=== PATIENT | male | born 1995 | race Caucasian/White ===

== ENCOUNTER 2016-12-25 14:02 | Inpatient (IN) | payer OTHER ==
[2016-12-25 14:52] LABS: Urine Bacteria Absent (Absent); Urine Bilirubin Negative (Negative); Urine Glucose Negative (Negative); Urine Nitrite Negative (Negative)
[2016-12-25 15:04] LABS: Benzodiazepine Urine Screen Presumptive Positive (None Detect)
[2016-12-25 15:26] LABS: ALT 9 U/L (7-52); AST 14 U/L (13-39); Albumin 4.6 g/dL (3.2-5.2); Alkaline Phosphatase 57 U/L (34-104); Anion Gap 5 mmol/L (2-11); BUN/Creatinine Ratio 9.7 (8-20); Blood Urea Nitrogen 9 mg/dL (6-24); CO2 Carbon Dioxide 26 mmol/L (22-32); Calcium 9.5 mg/dL (8.6-10.3); Chloride 104 mmol/L (101-111); EGFR African American 133.2 (>60); EGFR Non-African American 103.6 (>60); Globulin 2.9 g/dL (2-4); Glucose 79 mg/dL (70-100); Potassium 4.7 mmol/L (3.5-5.0); Sodium 135 mmol/L (133-145); Total Protein 7.5 g/dL (6.4-8.9)
[2016-12-25 15:51] LABS: Acetaminophen < 15 mcg/mL; Alcohol < 10 mg/dL (<10); Salicylate < 2.50 mg/dL (<30)
[2016-12-25 15:58] LABS: Hematocrit 48 % (42-52); Hemoglobin 16.4 g/dl (14.0-18.0); Mean Corpuscular HGB Conc 34 g/dl (31-36); Mean Corpuscular Hemoglobin 32 pg (27-31); Mean Corpuscular Volume 95 fL (80-94); Mean Platelet Volume 8 um3 (7.4-10.4); Red Blood Count 5.07 10^6/ul (4.0-5.4); Red Cell Distribution Width 13 % (10.5-15); White Blood Count 7.9 10^3/ul (3.5-10.8)
[2016-12-25 16:00] LABS: TSH (Thyroid Stimulating Horm) 2.14 mcIU/mL (0.34-5.60)
--- NOTE | 2016-12-25 18:45 | ED ---
Geoff Cardenas Auryana, scribed for Cortez Parson MD on 12/25/16 at 1456 . Psychiatric Complaint - HPI Summary HPI Summary: 21 year old male presents as a 9.41. Per patient, he saw a new doctor and explained to him that he had SI years ago while in high school and then the police brought him here. He reports that he is very angry with the current situation but does report that he is depressed, more often at night reports over the last few weeks. He also has increased sleep but reports good quality. He reports good appetite. He denies any SI or plan, hallucinations, delusion, paranoia, or any self-harm. He is not on any current medications for psychiatric issues. PMHx is significant for depression (previous Rx for low dose SSRI). SHx is significant for alcohol use (3x week - denies any use last night or today), and marijuana use. He denies any other recreational drug use. - History Of Current Complaint Chief Complaint: EDMentalHealth Time Seen by Provider: 12/25/16 14:23 Accompanied By: police Hx Obtained From: Patient Onset/Duration: Gradual Onset, Lasting Weeks, Still Present Timing: Weeks - few Severity Initially: Moderate Severity Currently: Moderate Character: Depressed Associated Signs And Symptoms: Positive: Sleep Disturbance - increased sleep. Negative: Hallucinating, Paranoid Behavior, Appetite Change Related History: Positive For: Prior Psychiatric Issues - hx of depression Has Suicidal: Reports: Thoughts - per doctors report - Allergies/Home Medications Allergies/Adverse Reactions: Allergies Allergy/AdvReac Type Severity Reaction Status Date / Time No Known Allergies Allergy Verified 07/12/13 06:38 PMH/Surg Hx/FS Hx/Imm Hx Endocrine/Hematology History: Denies: Hx Diabetes Cardiovascular History: Denies: Hx Hypertension, Hx Pacemaker/ICD History: Denies: Hx Dialysis, Hx Renal Disease Sensory History: Denies: Hx Hearing Aid Neurological History: Reports: Hx Headaches Psychiatric History: Reports: Hx Depression Denies: Hx Eating Disorder, Hx Panic Disorder, Hx of Violent Episodes Against Others Infectious Disease History: No Infectious Disease History: Denies: Traveled Outside the [place] in Last 30 Days - Family History Known Family History: Positive: Other - no family history of psychiatric issues or illnesses - Social History Lives: With Family Alcohol Use: None Substance Use Type: Reports: Marijuana Substance Use Comment - Amount & Last Used: 2 x total not recently Review of Systems Constitutional: Negative Eyes: Negative ENT: Negative Cardiovascular: Negative Respiratory: Negative Gastrointestinal: Negative Genitourinary: Negative Musculoskeletal: Negative Skin: Negative Neurological: Negative Positive: Depressed, Other - no SI All Other Systems Reviewed And Are Negative: Yes Physical Exam - Summary Physical Exam Summary: The patient is well-nourished in no acute distress and in no acute pain. The skin is warm and dry and skin color reflects adequate perfusion. No evidence of trauma. HEENT: The head is normocephalic and atraumatic. The pupils are equal and reactive. The conjunctivae are clear and without drainage. Nares are patent and without drainage. Mouth reveals moist mucous membranes and the throat is without erythema and exudate. The external ears are intact. Neck is supple with full range of motion and non-tender. There are no carotid bruits. There is no neck vein distension. Respiratory: Chest is non-tender. Lungs are clear to auscultation and breath sounds are symmetrical and equal. Cardiovascular: Hear is regular rate and rhythm. There is no murmur or rub auscultated. There is no peripheral edema and pulses are symmetrical and equal. Abdomen: The abdomen is soft and non-tender. There are normal bowel sounds heard in all four quadrants and there is no organomegaly palpated. Musculoskeletal: There is no back pain noted. Extremities are non-tender with full range of motion. There is good capillary refill. There is no peripheral edema or calf tenderness elicited. Neurological: Patient is alert and oriented to person, place and time. The patient has symmetrical motor strength in all four extremities. Cranial nerves are grossly intact. Deep tendon reflexes are symmetrical and equal in all four extremities. Psychiatric: The patient is alert, angry, and depressed. Triage Information Reviewed: Yes Vital Signs On Initial Exam: Initial Vitals Temp Pulse Resp BP Pulse Ox 98.0 F 55 16 108/83 100 12/25/16 14:05 12/25/16 14:05 12/25/16 14:05 12/25/16 14:05 12/25/16 14:05 Vital Signs Reviewed: Yes Diagnostics - Vital Signs Vital Signs Temp Pulse Resp BP Pulse Ox 12/25/16 14:05 98.0 F 55 16 108/83 100 - Laboratory Lab Results: Lab Results 12/25/16 12/25/16 12/25/16 Range/Units 14:28 14:28 14:58 WBC (3.5-10.8) 10^3/ul RBC (4.0-5.4) 10^6/ul Hgb (14.0-18.0) g/dl Hct (42-52) % MCV (80-94) fL MCH (27-31) pg MCHC (31-36) g/dl RDW (10.5-15) % Plt Count (150-450) 10^3/ul MPV (7.4-10.4) um3 Neut % (Auto) (38-83) % Lymph % (Auto) (25-47) % [place] % (Auto) (1-9) % Eos % (Auto) (0-6) % Baso % (Auto) (0-2) % Absolute Neuts (auto) (1.5-7.7) 10^3/ul Absolute Lymphs (auto) (1.0-4.8) 10^3/ul Absolute Monos (auto) (0-0.8) 10^3/ul Absolute Eos (auto) (0-0.6) 10^3/ul Absolute Basos (auto) (0-0.2) 10^3/ul Absolute Nucleated RBC 10^3/ul Nucleated RBC % Sodium 135 (133-145) mmol/L Potassium 4.7 (3.5-5.0) mmol/L Chloride 104 (101-111) mmol/L Carbon Dioxide 26 (22-32) mmol/L Anion Gap 5 (2-11) mmol/L BUN 9 (6-24) mg/dL Creatinine 0.93 (0.67-1.17) mg/dL Est GFR ( Amer) 133.2 (>60) Est GFR (Non-Af Amer) 103.6 (>60) BUN/Creatinine Ratio 9.7 (8-20) Glucose 79 (70-100) mg/dL Calcium 9.5 (8.6-10.3) mg/dL Total Bilirubin 0.40 (0.2-1.0) mg/dL AST 14 (13-39) U/L ALT 9 (7-52) U/L Alkaline Phosphatase 57 (34-104) U/L Total Protein 7.5 (6.4-8.9) g/dL Albumin 4.6 (3.2-5.2) g/dL Globulin 2.9 (2-4) g/dL Albumin/Globulin Ratio 1.6 (1-3) TSH 2.14 (0.34-5.60) mcIU/mL Urine Color Yellow Urine Appearance Clear Urine pH 6.0 (5-9) Ur Specific [place] 1.014 (1.010-1.030) Urine Protein Negative (Negative) Urine Ketones Negative (Negative) Urine Blood Negative (Negative) Urine Nitrate Negative (Negative) Urine Bilirubin Negative (Negative) Urine Urobilinogen Negative (Negative) Ur Leukocyte Esterase 3+ H (Negative) Urine WBC (Auto) 2+(11-20/hpf) H (Absent) Urine RBC (Auto) Absent (Absent) Ur Squamous Epith Cells Present H (Absent) Urine Bacteria Absent (Absent) Urine Glucose Negative (Negative) Salicylates < 2.50 (<30) mg/dL Urine Opiates Screen None detected (None Detect) Acetaminophen < 15 mcg/mL Ur Barbiturates Screen None detected (None Detect) Ur Phencyclidine Scrn None detected (None Detect) Ur Amphetamines Screen None detected (None Detect) U Benzodiazepines Scrn Presumptive positive H (None Detect) Urine Cocaine Screen None detected (None Detect) U Cannabinoids Screen Presumptive positive H (None Detect) Serum Alcohol < 10 (<10) mg/dL 12/25/16 Range/Units 15:17 WBC 7.9 (3.5-10.8) 10^3/ul RBC 5.07 (4.0-5.4) 10^6/ul Hgb 16.4 (14.0-18.0) g/dl Hct 48 (42-52) % MCV 95 H (80-94) fL MCH 32 H (27-31) pg MCHC 34 (31-36) g/dl RDW 13 (10.5-15) % Plt Count 221 (150-450) 10^3/ul MPV 8 (7.4-10.4) um3 Neut % (Auto) 46.1 (38-83) % Lymph % (Auto) 43.4 (25-47) % [place] % (Auto) 7.6 (1-9) % Eos % (Auto) 1.9 (0-6) % Baso % (Auto) 1.0 (0-2) % Absolute Neuts (auto) 3.6 (1.5-7.7) 10^3/ul Absolute Lymphs (auto) 3.4 (1.0-4.8) 10^3/ul Absolute Monos (auto) 0.6 (0-0.8) 10^3/ul Absolute Eos (auto) 0.2 (0-0.6) 10^3/ul Absolute Basos (auto) 0.1 (0-0.2) 10^3/ul Absolute Nucleated RBC 0 10^3/ul Nucleated RBC % 0 Sodium (133-145) mmol/L Potassium (3.5-5.0) mmol/L Chloride (101-111) mmol/L Carbon Dioxide (22-32) mmol/L Anion Gap (2-11) mmol/L BUN (6-24) mg/dL Creatinine (0.67-1.17) mg/dL Est GFR ( Amer) (>60) Est GFR (Non-Af Amer) (>60) BUN/Creatinine Ratio (8-20) Glucose (70-100) mg/dL Calcium (8.6-10.3) mg/dL Total Bilirubin (0.2-1.0) mg/dL AST (13-39) U/L ALT (7-52) U/L Alkaline Phosphatase (34-104) U/L Total Protein (6.4-8.9) g/dL Albumin (3.2-5.2) g/dL Globulin (2-4) g/dL Albumin/Globulin Ratio (1-3) TSH (0.34-5.60) mcIU/mL Urine Color Urine Appearance Urine pH (5-9) Ur Specific [place] (1.010-1.030) Urine Protein (Negative) Urine Ketones (Negative) Urine Blood (Negative) Urine Nitrate (Negative) Urine Bilirubin (Negative) Urine Urobilinogen (Negative) Ur Leukocyte Esterase (Negative) Urine WBC (Auto) (Absent) Urine RBC (Auto) (Absent) Ur Squamous Epith Cells (Absent) Urine Bacteria (Absent) Urine Glucose (Negative) Salicylates (<30) mg/dL Urine Opiates Screen (None Detect) Acetaminophen mcg/mL Ur Barbiturates Screen (None Detect) Ur Phencyclidine Scrn (None Detect) Ur Amphetamines Screen (None Detect) U Benzodiazepines Scrn (None Detect) Urine Cocaine Screen (None Detect) U Cannabinoids Screen (None Detect) Serum Alcohol (<10) mg/dL Result Diagrams: 12/25/16 15:17 12/25/16 14:58 Lab Statement: Any lab studies that have been ordered have been reviewed, and results considered in the medical decision making process. Course/Dx - Course Assessment/Plan: 21 year old male presents as a 9.41. Per patient, he saw a new doctor and explained to him that he had SI years ago while in high school and then the police brought him here. He reports that he is very angry with the current situation but does report that he is depressed, more often at night reports over the last few weeks. He also has increased sleep but reports good quality. He reports good appetite. He denies any SI or plan, hallucinations, delusion, paranoia, or any self-harm. He is not on any current medications for psychiatric issues. PMHx is significant for depression (previous Rx for low dose SSRI). SHx is significant for alcohol use (3x week - denies any use last night or today), and marijuana use. He denies any other recreational drug use. Medically clear at 14:53. Blood work is WNL. UA is contaminated with leukocyte esterase 3+, and WBC 2+. Negative salicylates, acetaminophen, and alcohol. Toxicology screen is (+) for benzodiazepines and cannabinoids. After MHE, Dr. rOtega recommends voluntary admission to [facility] [place] behavioral unit and if patient does not accept voluntary admission, involuntary admission is recommended. Patient accepted voluntary admission to [facility] [place] behavioral unit- 9.13. Dx: depression, anxiety - Differential Dx/Clinical Impression Differential Diagnosis/HQI/PQRI: Positive: Anxiety, Depression, Suicidal Ideation Provider Diagnosis: Depression, Anxiety Discharge - Discharge Plan Condition: Stable Disposition: PSYCHIATRIC FACILITY-[facility] [place] The documentation as recorded by the Geoff pike Auryana accurately reflects the service I personally performed and the decisions made by me, Cortez Parson MD.
[2016-12-25] MEDS ORDERED: Al Hydrox/Mg Hydrox/Simet LIQ* 30 ML UDC PO PRN (20:06)
[2016-12-25] MEDS ORDERED: Acetaminophen TAB* 325 MG PO PRN (20:06)
[2016-12-25] MEDS ORDERED: diPHENhydraMINE PO* 50 MG PO PRN (20:08)
[2016-12-25] MEDS ORDERED: LORazepam TAB(*) 1 MG PO PRN (20:08)
[2016-12-25] MEDS ORDERED: Mouth Piece, Nicotine* 1 EACH CARTRIDGE INH PRN (21:41)
[2016-12-25] MEDS: Nicotine Inhaler* 10 MG AMP INH PRN (21:52)
[2016-12-26] MEDS: Nicotine Inhaler* 10 MG AMP INH PRN ×4 (08:28→19:27)
[2016-12-26] MEDS: Vitamin THERAPEUTIC TAB PO SCH (08:28)
[2016-12-26] MEDS ORDERED: FLUoxetine CAP* 10 MG PO SCH (09:00)
[2016-12-26] MEDS: Venlafaxine EXT RELEASE CAP* 37.5 MG PO SCH (16:05)
[2016-12-26] MEDS: LORazepam TAB(*) 0.5 MG PO PRN ×2 (16:05→22:10)
--- NOTE | 2016-12-27 03:57 | HP ---
HISTORY AND PHYSICAL: DATE OF ADMISSION: 12/25/16 IDENTIFYING DATA: Brandon is a 21-year-old single male, a [employer] student, who lives with his father. He was brought in from his primary care doctor's office on 9.45 status and he was admitted on emergency status because of reported suicidal ideation. CHIEF COMPLAINT: "I told the doctor, I was depressed and felt worked up, he misunderstood and called the police!" HISTORY OF PRESENT ILLNESS: Brandon is known to the adolescent inpatient psychiatric service from previous admission in 2013. He relates having past diagnosis of depression, social anxiety, but not having been on any medication or in therapy for over 2 years. The endorses for the past 2 weeks, having felt increasingly sad, especially in the early hours of morning when he is unable to fall asleep. He feels tired, has little energy and sleeps long periods of time during the day and he feels worthless at times. He denies previous jesús suicide attempt or history of self-injury. He attended [employer] about 2 weeks ago, and he used Xanax, LSD and Ecstasy. After [employer] he told his girlfriend of 2 months that he has kissed a girl at the festival and the girlfriend confessed to him that she had cheated on him with someone he knew. He broke up the relationship on Tuesday12/18/16 says he has felt more distressed ever since. Yesterday, he went to his first appointment at [facility] and spoke to Dr. Mckinley Knight about his worsening depressive symptoms and although he denied that was ever the case, notes from the mental health evaluation indicates that he made suicidal statements and could not contract for safety and refused to drive himself to the emergency room of this hospital for mental health evaluation and was as a result transported by police. 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 REVIEW OF PSYCHIATRIC SYMPTOMS: He gives a 2-week history of worsening depressive symptoms, but denies suicidal ideation, intent or plan or previous jesús attempt. He endorses anxiety in social situations, excessive worrying, "what ifs,"and occasional panic attacks. He denies obsessive thoughts or compulsive rituals. He denies any history of trauma or abuse of PTSD symptoms. He denies previous diagnosis of ADHD or learning disorder. He denies symptoms of eating disorder. PAST PSYCHIATRIC HISTORY: History of one previous inpatient psychiatric admission in the adolescent unit, in 2014 because of suicidal ideation. He has received outpatient care in the past at [facility] and with psychologist, Dr. Lukas Gabriel. Has had past trials of fluoxetine and sertraline , which he admits he was never fully adherent to. He reports not having been in psychiatric care for over the past 2 years. SUICIDE/HOMICIDE HISTORY: The patient was transported to the hospital after admitting to having suicidal ideation to a new primary care physician. He now denies having suicidal, any history of previous suicide attempt or of self- injury. PAST MEDICAL HISTORY: He denies any active medical problems, any history of head trauma, loss of consciousness, seizures or surgeries. The patient was in the [place] [facility] [place] brought in to the hospital. ALLERGIES: No known drug allergies. FAMILY HISTORY: The patient reports family history of depression and anxiety in his biological mother and alcohol dependence in maternal grandfather. SUBSTANCE ABUSE TREATMENT HISTORY: He admits to smoking marijuana about 3 to 5 times a week and he started using at age 17. Urine drug screen is positive. He drinks alcohol about twice a week. He denies legal or medical consequences. He used Xanax, LSD, and Peggy during the [employer] about 2 weeks ago. Urine drug screen is still positive for benzodiazepines suggesting more recent use. He smokes about a half a pack of cigarettes per day. He denies the use of other illicit drugs or misuse of prescribed medications. PERSONAL AND SOCIAL HISTORY: He is the youngest of 3 children from parents, who when he was about 14 years old. He lived between the houses of both his [facility], then with his mother exclusively from age 17 to age 20 and he has been living with his father ever since. The patient has recently completed his 3rd semester at [employer]. He did poorly academically in the last 2 semesters and as a result he may have lost financial support and possibly will no longer be able to afford college. He was working towards degree in Business. He identifies as being heterosexual. Breakup of his relationship of 2 months has been a stressor. He described a periodically strained relationship with his mother. REVIEW OF MEDICAL SYMPTOMS: Negative. PHYSICAL EXAMINATION GENERAL: He is a well-appearing 21-year-old white male, who does not appear to be in any acute physical distress. He is alert and oriented x3. ADMISSION VITAL SIGNS: Blood pressure 121/60, pulse is 56, respirations 16, temperature 98.6. HEENT: Head: Atraumatic, normocephalic, symmetrical. Eyes: PERRLA. Tympanic membranes intact. Sclerae anicteric. Conjunctivae clear. NECK: Trachea midline, freely mobile. No cervical lymphadenopathy. No nuchal rigidity. LUNGS: Clear to auscultation bilaterally. HEART: Regular rate and rhythm. S1, S2. No murmur, gallops, or rubs. BREASTS EXAM: No mass or discharge. ABDOMEN: Soft, nontender. No masses, organomegaly, or rebound tenderness. No scars noted. Active bowel sounds in all 4 quadrants. EXTREMITIES: No pain or limitation in the range of movement. Pulses are equal and adequate in all 4 extremities. NEUROLOGIC: Cranial nerves II through XII are intact. Cerebellar function intact. Muscle strength grade 5/5 in all 4 extremities. GENITAL: Not performed. RECTAL: Not performed. STRUCTURAL EXAM: The patient examined in both supine and upright positions. No gross AP or lateral asymmetry. Gait and movement are within normal limits. SKIN: Skin texture, turgor, and pigmentation are within normal limits. LABORATORIES ON ADMISSION: Shows MCV of 95, MCH of 32. Complete metabolic panel within normal limits. Urinalysis shows 3+ leukocyte esterase, 2+ wbc, and presence of squamous epithelial cells. Urine toxicology screen is positive for benzodiazepines and for cannabis. MENTAL STATUS EXAMINATION: Finds an averagely built 21-year-old white male, who looks his stated age. He is adequately groomed, casually dressed. He makes fair eye contact. He presents as somewhat internally agitated, overtly argumentative, irritable and engages in some medication seeking stances . No abnormal movements are observed. His affect is irritable. Mood is dysphoric. His thoughts are linear and goal directed. No evidence of formal thought disorder. No overt delusions. He denies auditory or visual hallucinations. He avidly denied suicidal ideation, intent, plan, urges to self-mutilate or homicidal ideation, and he contracts for safety. Insight and judgment are questionable. Impulse control is fair in this setting. He is alert. He is oriented to time, place, and person. SUMMARY: Second lifetime inpatient psychiatric admission for this 21-year-old male with history of depression, anxiety, substance abuse, poor adherence to previous outpatient psychiatric treatment, who was brought in by police from primary care physician's office to whom he had disclosed that he was increasingly depressed and had thoughts of suicide and he could not contract for safety. Medical history is unremarkable. His urine drug screen is positive for benzodiazepines and cannabis. The patient admitted to regular use of alcohol and marijuana and recent use of LSD, DMA and alprazolam at recent [employer]. 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 The patient during interview, presented as argumentative, irritable, entitled, demanding, med-seeking, and described a history of difficulty with authority figures and accepting limit setting since early age. DIAGNOSTIC IMPRESSIONS: 1. Major depressive disorder, recurrent, [id number], without psychotic features. 2. Unspecified anxiety disorder. 3. Cannabis and alcohol dependance. 4. Polysubstance use disorder, [id number]. 5. Antisocial and narcissistic personality traits. TREATMENT PLAN: Admit to mental health unit on emergency status for observation , 15-minute checks, full code status. Initiate comprehensive milieu, individual and group psychotherapeutic support. Medication management will involve, starting the patient on a trial of venlafaxine ER 37.5 mg daily for depression and anxiety and on a 2 week trial of lorazepam 0.5 mg q.12 hours p.r.n. to help bridge him over until the venlafaxine become effective. This check writer salesperson keeps in mind that the patient has history of substance abuse and will make recommendation that the patient's prescriptions of lorazepam not be extended past 2 weeks' duration. Discharge planning was involved connecting the patient to outpatient psychiatric care. The patient is reluctant to engaging in therapy, but was told that he will need to be under the care of a psychiatrist to continue receiving the prescribed medication given what had happened at his primary care physician's office the previous day. [id number]/[facility] #: [id number] [facility] MEDICAL CENTERKimmy
[2016-12-27 07:23] VITALS: BP 128/91
[2016-12-27] MEDS: Vitamin THERAPEUTIC TAB PO SCH (07:52)
[2016-12-27] MEDS: Venlafaxine EXT RELEASE CAP* 37.5 MG PO SCH (07:53)
[2016-12-27] MEDS: LORazepam TAB(*) 0.5 MG PO PRN ×2 (07:53→15:47)
[2016-12-27] MEDS: Nicotine Inhaler* 10 MG AMP INH PRN ×4 (07:53→15:47)
--- NOTE | 2016-12-27 15:25 | DS ---
Subjective - Subjective Discharge Date: 12/27/16 Subjective: Crystal maintains readiness for discharge. HE had submitted a 72-hour notice soon after being admitted here of 12/25/16. He affirms she feels safe and good about being alive. He denies emotional pain or unmanageable anxiety. He avidly denies having thoughts of suicide or urges to self-harm. He denies problems with medications, and says she does not see obstacles to routine care / therapy, or emergency help if needed again. Objective - Appearance Appearance: Healthy Appearing Dysmorphic Features: No Hygiene: Normal Grooming: Well Kept - Behavior Psychomotor Activities: Normal Exhibits Abnormal Movement: No - Attitude and Relatedness Attitude and Relatedness: Minimally Cooperative Eye Contact: Fair - Speech Quality: Unpressured Latencies: Normal Quantity: Appropriate - Mood Patient's Decription of Mood: "Okay" - Affect Observed Affect: Fair Affect Consistent with: Euthymia - Thought Process Patient's Thought Process: Coherent, Goal Directed Thought Content: No Passive Wish, No Suicidal Planning, No Homicidal Ideation, No Paranoid Ideation - Sensorium Experiencing Hallucinations: No, Sensorium is Clear - Level of Consciousness Level of Consciousness: Alert Orientation: Yes Intact - Impulse Control Impulse Control: Intact - Insight and Judgement Insight and Judgement: Poor - Group Participation Particating in Group Activities: Yes Treatment Course & Assessment Clinical Course & Impression: SUMMARY: Second lifetime inpatient psychiatric admission for this 21-year-old male with history of depression, anxiety, substance abuse, poor adherence to previous outpatient psychiatric treatment, who was brought in by police from primary care physician's office to whom he had disclosed that he was increasingly depressed and had thoughts of suicide and he could not contract for safety. Medical history is unremarkable. His urine drug screen is positive for benzodiazepines and cannabis. The patient admitted to regular use of alcohol and marijuana and recent use of LSD, DMA and alprazolam at [place] [employer]. 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 The patient during interview, presented as argumentative, irritable, entitled, demanding, med-seeking, and described a history of difficulty with authority figures and accepting limit setting since early age. Clear for release: 12/27/16 Crystal stabilized here behaviorally and improved clinically. He was safe on checks , adherent with routines, and free of active suicidal ideation. He was superficially engaged in programming. Medication management started trials of Venlafaxine ER and 2-week of low dose of Lorazepam prn. Risk concern centers on previous non-adherence with treatment, polysubstance use disorder use and suicidal thinking. Crystal's profile puts him at chronic elevated risk for suicide but at this time acute risk is assessed as low - factors are is tolerable and reduced symptom burden, absence of impairment, and benign observed behavior and ideation. Relapse on substances or non-adherence with psychiatric and substance abuse treatment could increase his risk again. Merits Inpatient Hospitalization: No Clear for Discharge: Adequate Clinical Respons, Acceptable Safety Profile Inpatient DSM-IV Dx: 1. Major depressive disorder, recurrent, moderate-to- severe, without psychotic features. 2. Unspecified anxiety disorder. 3. Cannabis and alcohol dependance. 4. Polysubstance use disorder, moderate-to- severe. 5. Antisocial and narcissistic personality traits. Discharge Planning - Discharge Planning Discharge Plan: Outpatient Follow Up Outpatient Program: [facility] Recommendations for Continuing Care: Medication Management, Psychotherapy Medications: Discharge Medications Lorazepam (Ativan Tab(*)) 0.5 mg PO Q6H PRN FOR ANXIETY; Venlafaxine HCl (Effexor Xr Cap*) 37.5 mg PO DAILY FOR DEPRESSION AND ANXIETY. Discharge Planning: Prescriptions provided for discharge [X] Yes [] No Follow up care details as per social work arrangements. Patient response to discharge plan: [X] eager for discharge [] agreeable with discharge plan [] ambivalent about discharge [] disagrees with discharge today Follow-up JOCELYN MARTINMICHAELA ROJAS has been referred to the following clinics/specialists for follow-up care: [facility] [address] [place] [address] You have an intake scheduled with Brooke Perrin RN on December 30 at 12:30. We recommend you follow up after the intake to have weekly counseling and monthly medication management services with the clinic.
== END 2016-12-27 16:45 | disposition home or self-care (01) | DRG 751 ==
LOC: ED 14:02 → BSU 19:38
PROVIDERS: ADMIT Psychiatry & Neurology Psychiatry; ATTEND Psychiatry & Neurology Psychiatry
DX: F33.2 Major depressive disorder, recurrent severe without psychotic features (principal); F41.9 Anxiety disorder, unspecified; F10.20 Alcohol dependence, uncomplicated; F12.20 Cannabis dependence, uncomplicated; Y90.9 Presence of alcohol in blood, level not specified; F19.90 Other psychoactive substance use, unspecified, uncomplicated; F17.210 Nicotine dependence, cigarettes, uncomplicated; Z81.8 Family history of other mental and behavioral disorders; Z81.1 Family history of alcohol abuse and dependence
CPT/HCPCS: 36415; 80053; 80307; 80320; 80329; 81003; 81015; 84443; 85025; 86703; 87086; 99222; 99238; A9270-GY; G0480